=== PATIENT | female | born 1935 | race Caucasian/White ===

== ENCOUNTER → 2017-02-16 | Outpatient (CLI) | payer MEDICARE, OTHER | END | disposition home or self-care (01) | LOC: GMAJ 10:18 | PROVIDERS: ATTEND Family Medicine | DX: I50.9 Heart failure, unspecified (principal); E53.8 Deficiency of other specified B group vitamins; Z79.899 Other long term (current) drug therapy ==

== ENCOUNTER → 2017-06-24 | Outpatient (CLI) | payer MEDICARE, OTHER | END | disposition home or self-care (01) | LOC: GMAJ 12:49 | PROVIDERS: ATTEND Family Medicine | DX: I50.9 Heart failure, unspecified (principal); Z79.899 Other long term (current) drug therapy ==

== ENCOUNTER → 2017-08-22 | Outpatient (CLI) | payer MEDICARE, OTHER | END | disposition home or self-care (01) | LOC: YCFC.O 11:56 | PROVIDERS: ATTEND Anesthesiology Pain Medicine | DX: Z79.891 Long term (current) use of opiate analgesic (principal) ==

== ENCOUNTER → 2018-05-11 | Outpatient (CLI) | payer MEDICARE, OTHER | LOC: GMAJ 11:04 | PROVIDERS: ATTEND Family Medicine | DX: I50.9 Heart failure, unspecified (principal); Z79.899 Other long term (current) drug therapy ==

== ENCOUNTER 2018-11-08 19:40 | Emergency (ER) | payer MEDICARE, OTHER ==
--- NOTE | 2018-11-08 20:26 | ED.PDOC ---
History of Present Illness - General Chief Complaint: Chest Pain/TX Stated Complaint: chest pain Time Seen by Provider: 11/08/18 20:12 Source: patient, family Exam Limitations: no limitations - History of Present Illness Initial Comments: PRESENTS C/O NOSEBLEED FOLLOWED BY CP. PT WITH CHRONIC A FIB ON ELIQUIS. HAD EPISTAXSIS TODAY THEN HAD CP. CP HAS RESOLVED AND WAS SHORT LIVED BUT DAUGHTER BROUGHT HER HERE FOR EVALUATION. Timing/Duration: other - UNKNOWN DURATION Severity/Quality: mild Location: substernal Chest Pain Radiation: no radiation Activities at Onset: none Improving Factors: other - RESOLVED SPONTANEOUSLY Worsening Factors: nothing Associated Symptoms: denies symptoms Allergies/Adverse Reactions: Allergies Iodine Allergy (Severe, Verified 11/08/18 19:59) Rash blisters Meloxicam Allergy (Mild, Verified 11/08/18 19:59) Other stomach issues Naproxen Allergy (Mild, Verified 11/08/18 19:59) Rash Oxcarbazepine [From Trileptal] Allergy (Mild, Verified 11/08/18 19:59) Rash Pravastatin [From Pravachol] Allergy (Mild, Verified 11/08/18 19:59) Other stomach issues Povidone Iodine [From Betadine] Allergy (Verified 11/08/18 19:59) Home Medications: Ambulatory Orders Furosemide [Lasix] 40 mg PO AC 10/07/15 Potassium Chloride [Micro-K] 10 meq PO DAILY PRN #60 cap 10/09/15 Amoxicillin & Pot Clavulanate [Augmentin] 1 tab PO BID #20 tab 11/08/18 Apixaban [Eliquis] 5 mg PO BID 11/08/18 Digoxin [Lanoxin Tab] 0.125 mg PO DAILY@1200 11/08/18 Metoprolol Tartrate [Lopressor] 100 mg PO BID 11/08/18 Tramadol HCl 50 mg PO Q4HR PRN 11/08/18 Review of Systems - Review of Systems Constitutional: States: see HPI EENTM: States: see HPI Respiratory: States: see HPI Cardiology: States: see HPI Gastrointestinal/Abdominal: States: see HPI Genitourinary: States: see HPI Musculoskeletal: States: see HPI Skin: States: see HPI Neurological: States: see HPI Endocrine: States: see HPI Hematologic/Lymphatic: States: see HPI Unable to Obtain Due To: dementia Past Medical History (General) - Patient Medical History Hx Seizures: No Hx Stroke: No Hx Dementia: No Hx Asthma: No Hx of COPD: No Hx Cardiac Disorders: Yes - AFib Hx Congestive Heart Failure: Yes Hx Pacemaker: No Hx Hypertension: Yes Hx Thyroid Disease: No Hx Diabetes: No Hx Gastroesophageal Reflux: No Hx Renal Disease: No Hx Cancer: No Hx of HIV: No Hx Hepatitis C: No Hx MRSA: No Surgical History: other - Vaccination History Hx Tetanus, Diphtheria Vaccination: - unknown Hx Influenza Vaccination: Yes - 2013 Hx Pneumococcal Vaccination: Yes - Social History Hx Tobacco Use: Yes - quit 20 years ago Hx Alcohol Use: No Family Medical History - Family History Mother Family History: Unknown Living Status: Hx Cardiac Disease: Yes - [place] Physical Exam - Physical Exam General Appearance: Alert, Frail, No apparent distress Eyes, Ears, Nose, Throat Exam: PERRL/EOMI, normal ENT inspection, other - EVIDENCE OF BLEEDING R NOSTRIL NO ACTIVE BLEEDING, SMALL CLOT NOTED, Neck: non-tender, full range of motion, supple Respiratory: lungs clear, normal breath sounds, no respiratory distress Cardiovascular/Chest: irregularly irregular Gastrointestinal/Abdominal: non tender, soft, no organomegaly Extremity: normal range of motion, non-tender, no pedal edema Neurologic: alert, normal mood/affect, other - DEMENTED Skin Exam: normal color, warm/dry, other - 1+ PITTING EDEMA DANA LE Lymphatic: no adenopathy Progress - Progress Progress: 11/08/18 21:39 PT STABLE, SATS 98% ON RA. NO DISTRESS, CAN STAY WITH FAMILY, DOES NOT WANT TO B E ADMITTED. ELEVATED D DIMER, BUT MOST LIKELY DUE TO INFILTRATE. MILD ELEVATION IN BILI BUT MILD AND COULD BE SECONDARY TO RLL INFILTRATE, CAN BE FOLLOWED OUTPT. - EKG/XRAY/CT EKG: Atrial, Fibrillation - VENT RATE 74, LAD, , nonspecific ST T wave Chg - NAIP, , Unchanged from - 10/07/15 EXCEPT RESOLUTION OF PVC'S XRAY: chest - RLL INFILTRATES Departure - Departure Clinical Impression: Atrial fibrillation with controlled ventricular response, Epistaxis not due to trauma RLL pneumonia Qualifiers: Pneumonia type: due to unspecified organism Qualified Code(s): J18.1 - Lobar pneumonia, unspecified organism Time of Disposition: 22:20 Disposition: Discharge to Home or Self Care Condition: Good Departure Forms: ED Discharge - Pt. Copy, Patient Portal Self Enrollment Instructions: Pneumonia in Adults Referrals: Victor Manuel Coughlin MD [Primary Care Provider] - 1-2 Weeks Prescriptions: Amoxicillin & Pot Clavulanate [Augmentin] 1 tab PO BID #20 tab Home Medications: Ambulatory Orders Furosemide [Lasix] 40 mg PO AC 10/07/15 Potassium Chloride [Micro-K] 10 meq PO DAILY PRN #60 cap 10/09/15 Amoxicillin & Pot Clavulanate [Augmentin] 1 tab PO BID #20 tab 11/08/18 Apixaban [Eliquis] 5 mg PO BID 11/08/18 Digoxin [Lanoxin Tab] 0.125 mg PO DAILY@1200 11/08/18 Metoprolol Tartrate [Lopressor] 100 mg PO BID 11/08/18 Tramadol HCl 50 mg PO Q4HR PRN 11/08/18
--- NOTE | 2018-11-08 20:33 | RAD ---
EXAM DESCRIPTION: Chest,1 View CLINICAL HISTORY: 83 years Female chest pain COMPARISON: 10/07/2015 FINDINGS: Marked cardiac enlargement. There is atelectasis in the left base. Suspect atelectasis and/or infiltrate in the right lung base with right pleural effusion new as compared to the previous study. Findings may reflect pneumonia. No pneumothorax. Old fracture of the proximal humerus on the right. IMPRESSION: Findings concerning for atelectasis and/or infiltrate in the right lung base with associated right effusion. Findings may reflect reflect pneumonia Marked cardiac enlargement Electronically signed by: Dixie Robertson MD 11/08/2018 8:32 PM DIRECTOR PROSPECT
[2018-11-08] MEDS ORDERED: AZITHROMYCIN IV 500 MG in SODIUM CHLORIDE 0.9% 250ML 250 ML IVPB ONE (21:31)
[2018-11-08] MEDS ORDERED: cefTRIAXone SODIUM 1 GM in SODIUM CHL 0.9% 50ML MIN-BAG+ 50 ML IVPB ONE (21:31)
[2018-11-08] MEDS ORDERED: SODIUM CHLORIDE 0.9% 250ML 250 ML ONE (22:25)
[2018-11-08] MEDS ORDERED: cefTRIAXone SODIUM 1 GM VIAL ONE (22:25)
[2018-11-08] MEDS ORDERED: SODIUM CHL 0.9% 50ML MIN-BAG+ 50 ML IVPB ONE (22:25)
[2018-11-08] MEDS ORDERED: AZITHROMYCIN IV 500 MG VIAL IVPB ONE (22:25)
[2018-11-09 01:53] VITALS: O2SAT 98
[2018-11-09 01:57] VITALS: BP 156/91; TEMP 97.9
== END 2018-11-09 01:30 | disposition home or self-care (01) ==
LOC: ER 19:40
DX: J18.9 Pneumonia, unspecified organism (principal); I48.91 Unspecified atrial fibrillation; R04.0 Epistaxis; I50.9 Heart failure, unspecified; I11.0 Hypertensive heart disease with heart failure; F03.90 Unspecified dementia, unspecified severity, without behavioral disturbance, psychotic disturbance, mood disturbance, and anxiety; Z79.01 Long term (current) use of anticoagulants; Z79.899 Other long term (current) drug therapy; Z87.891 Personal history of nicotine dependence
CPT/HCPCS: 71045; 80048; 80076; 82550; 82553; 83880; 84484; 85025; 85379; 85610; 85730; 87040; 93005; J0456; J0696; J7050